=== PATIENT | female | born 1985 | race Hispanic/Latino ===

== ENCOUNTER 2022-08-11 08:23 | Emergency (ER) | payer SELFPAY ==
[2022-08-11] MEDS ORDERED: Ibuprofen 200 MG TAB ONE (09:27)
[2022-08-11] MEDS ORDERED: Dexameth. Sod Phosp. 10 MG/ML (CHEMO USE ONLY) ONE (10:51)
== END 2022-08-11 11:19 | disposition home or self-care (01) ==
LOC: ERS 08:23
DX: H60.501 Unspecified acute noninfective otitis externa, right ear (principal); B34.9 Viral infection, unspecified; Z87.891 Personal history of nicotine dependence
CPT/HCPCS: 87081; 87430; 99283; J1100